=== PATIENT | female | born 1965 | race Caucasian/White ===

== ENCOUNTER 2017-06-25 10:08 | Emergency (ER) | payer MEDICAID ==
[~2017-06-25] VITALS: Ht 160 cm; Wt 72.6 kg
[2017-06-25 11:02] VITALS: BP 168/107
--- NOTE | 2017-06-25 11:04 | NUR ---
PATIENT PRESENTS TO ED WITH C/O COUGH X1 WEEK . PT STATES THE COUGH HAS BECOME INCREASINGLY ANNOYING AND SHE NOW HAS A HEADACHE AND PAIN W/INSPIRATION . DENIES N/V/D; SKIN IS PINK/WARM/DRY; AAOX4 WITH EVEN AND STEADY GAIT; LUNGS CLEAR BL; HR EVEN AND REGULAR; PT DENIES ANY FEVER OR SOB AT THIS TIME; PATIENT STATES PAIN OF 8/10 AT THIS TIME; VSS; PATIENT POSITIONED FOR COMFORT IN OVERFLOW.ER MD MADE AWARE OF PT STATUS.
--- NOTE | 2017-06-25 11:04 | NUR ---
Patient to OF.
--- NOTE | 2017-06-25 11:05 | NUR ---
Dr. Mathur evaluating patient.
[2017-06-25 12:20] VITALS: BP 150/98
--- NOTE | 2017-06-25 12:20 | NUR ---
Patient discharged with v/s stable. Written and verbal after care instructions given and explained. Patient alert, oriented and verbalized understanding of instructions. Ambulatory with steady gait. All questions addressed prior to discharge. ID band removed. Patient advised to follow up with PMD. Rx of MOTRINTESSALGABRIELA PEARLS given. Patient educated on indication of medication including possible reaction and side effects. Opportunity to ask questions provided and answered.
== END 2017-06-25 12:20 | disposition home or self-care (01) ==
LOC: MED 10:08
DX: J20.9 Acute bronchitis, unspecified (principal); R03.0 Elevated blood-pressure reading, without diagnosis of hypertension
CPT/HCPCS: 71020; 99284